=== PATIENT | male | born 1955 | race Caucasian/White ===

== ENCOUNTER 2016-12-19 13:21 | Outpatient (CLI) | payer OTHER | END 2016-12-19 13:22 | disposition home or self-care (01) | LOC: DTY/OP 13:21 | PROVIDERS: ATTEND Family Medicine | DX: E11.9 Type 2 diabetes mellitus without complications (principal) | CPT/HCPCS: 97802 ==

== ENCOUNTER 2019-03-22 09:08 | Day surgery (SDC) | payer OTHER ==
[2019-03-19 15:35] VITALS: BMI 32.1
[2019-03-22] MEDS ORDERED: PROPOFOL 200 MG/20 ML VIAL ONE (09:59)
[2019-03-22] MEDS ORDERED: PHENYLEPHRINE-NS 100 MCG/ML 10 ML SYRINGE ONE (09:59)
[2019-03-22] MEDS ORDERED: Lidocaine 1% PF 5 ML VIAL ONE (09:59)
--- NOTE | 2019-03-22 12:54 | OP ---
DATE OF PROCEDURE: 03/22/2019 PROCEDURE: Colonoscopy with polypectomy. PREPROCEDURE DIAGNOSIS: Personal history of colon cancer. POSTPROCEDURE DIAGNOSIS: Diminutive rectal polyp removed by cold snare polypectomy. ANESTHESIA: TIVA. RECOMMENDATIONS: Await histopathology. If this is a benign adenoma, would repeat colonoscopy in 3 years. In light of cancer history, if it is not even an adenoma, do at 5. PROCEDURE IN DETAIL: The patient was informed of the risks, benefits, and possible complications of endoscopy including perforation, reaction to medication, reaction to medication, and aspiration. Informed consent was obtained. The patient was brought to the endoscopy suite, where he was sedated in a gradual fashion. Once he was comfortable, rectal examination was performed. The endoscope was advanced from the anal canal through the colon to the cecum, which was identified by ileocecal valve and appendiceal orifice. There was anastomosis to the sigmoid colon, which was normal with no erosions, ulcers, or evidence of tumor mass. The prep was very good. The appendix and ileocecal valve area were photographed. The endoscope was then slowly removed with good visualization of mucosa. Retroflexed views in the rectum were normal. There was one small diminutive 2 mm polyp in the rectum which was removed by cold snare polypectomy and submitted to Pathology. The scope was then removed. The patient tolerated the procedure well. There were no complications. Job ID: [id number]
--- NOTE | 2019-03-23 11:09 | EKG ---
Test Reason : POST OP Blood Pressure : / mmHG Vent. 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 Rosy MULLIGAN ([id number]) on 03/23/2019 11:09:09 AM Referred By: [email or web address] Confirmed By:DR. Rosy MULLIGAN
== END 2019-03-22 12:30 | disposition home or self-care (01) ==
LOC: SDC 09:08
PROVIDERS: ATTEND Internal Medicine Gastroenterology
PROC: 0DBP8ZZ Excision of Rectum, Via Natural or Artificial Opening Endoscopic (ICD-10-PCS; principal; 2019-03-22)
DX: Z12.11 Encounter for screening for malignant neoplasm of colon (principal); K62.1 Rectal polyp; E11.9 Type 2 diabetes mellitus without complications; E78.00 Pure hypercholesterolemia, unspecified; I25.10 Atherosclerotic heart disease of native coronary artery without angina pectoris; Z85.038 Personal history of other malignant neoplasm of large intestine; Z79.82 Long term (current) use of aspirin; Z79.84 Long term (current) use of oral hypoglycemic drugs; Z79.899 Other long term (current) drug therapy; Z95.5 Presence of coronary angioplasty implant and graft
CPT/HCPCS: 88305; 93005; 93010; J2001; J2704

== ENCOUNTER 2019-03-28 01:46 | Emergency (ER) | payer OTHER ==
[2019-03-28] MEDS ORDERED: Aspirin Chewable 81 MG TAB ONE (02:09)
[2019-03-28 02:11] LABS: #Basophils 0.1 thou/uL (0.0-0.2); #Eosinphils 0.1 thou/uL (0.0-0.7); #Lymphocytes 2.3 thou/uL (1.20-3.40); #Monocytes 0.5 thou/uL (0.11-0.59); #Neutrophils 3.1 thou/uL (1.40-6.50); %Basophils 1.4 % (0.0-1.0); %Eosinophils 2.1 % (0.0-10.0); %Monocytes 7.9 % (0.0-10.0); %Neutrophils 50.6 % (42.0-75.0); Hemoglobin 14.7 g/dL (14.0-18.0); Mean Corpuscular HGB CONC 34.8 g/dL (32.0-36.0); Mean Platelet Volume 7.5 fL (7.4-10.4); Platelet Count 139 thou/uL (130-400); RBC Distribution Width 11.8 % (11.5-14.5); Red Blood Cell (RBC) Count 4.75 mill/uL (4.70-6.10)
[2019-03-28 02:32] LABS: ALT (SGPT) 28 U/L (8-55); AST (SGOT) 20 U/L (5-34); Albumin 4.2 g/dL (3.4-4.8); Alkaline Phosphatase 114 U/L (40-110); Anion Gap 16 mmol/L (10-20); BUN (Urea Nitrogen) 11 mg/dL (8.4-25.7); Bilirubin, Total 3.3 mg/dL (0.2-1.2); Calc. Creatinine Clearance 0 mL/min (70-130); Calcium 9.4 mg/dL (7.8-10.44); Carbon Dioxide 23 mmol/L (23-31); Chloride 100 mmol/L (98-107); Estimated GFR-MDRD 69; Globulin 2.7 g/dL (2.4-3.5); Glucose 350 mg/dL (80-115); Protein, Total 6.9 g/dL (5.8-8.1); Sodium 135 mmol/L (136-145)
--- NOTE | 2019-03-28 08:26 | RAD ---
XR Chest 1 View Portable History: Chest pain Comparison: Radiograph 2013 Findings: Port catheter is similar. Single-lead AICD projects over the right ventricle. Heart size mildly enlarged. No confluent airspace consolidation. Pulmonary arteries are mildly enlar ged. Impression: No acute intrathoracic abnormality.
== END 2019-03-28 09:10 ==
LOC: ERS 01:46
DX: R07.9 Chest pain, unspecified (principal); I25.2 Old myocardial infarction; Z87.891 Personal history of nicotine dependence; Z79.899 Other long term (current) drug therapy; Z79.82 Long term (current) use of aspirin; Z95.5 Presence of coronary angioplasty implant and graft
CPT/HCPCS: 36415; 71045; 80053; 84484; 85025; 93005

== ENCOUNTER 2023-05-29 06:32 | Day surgery (SDC) | payer OTHER ==
[2023-04-29 12:46] VITALS: BMI 30.2
[2023-05-29] MEDS ORDERED: PROPOFOL 20 ML ONE (08:27)
[2023-05-29] MEDS ORDERED: Lidocaine 1% PF 5 ML VIAL ONE (08:28)
[2023-05-29] MEDS ORDERED: Etomidate 40 MG (20 mL) VIAL ONE (08:46)
[2023-05-29] MEDS ORDERED: Sodium Chloride 0.9% 100 ML ONE (08:54)
[2023-05-29] MEDS ORDERED: Phenylephrine 10 MG/ML VIAL ONE (08:54)
[2023-05-30 13:16] LABS: EliA Celiac New Method **** NEW METHOD ****; t-Transglutaminase (tTG) IgA Less than 0.2 EliAU/mL (<7 Negative)
== END 2023-05-29 09:57 | disposition home or self-care (01) ==
LOC: SDC 06:32
PROVIDERS: ATTEND Internal Medicine Gastroenterology
PROC: 0DBE8ZX Excision of Large Intestine, Via Natural or Artificial Opening Endoscopic, Diagnostic (ICD-10-PCS; principal; 2023-05-29)
DX: R19.7 Diarrhea, unspecified (principal); I25.10 Atherosclerotic heart disease of native coronary artery without angina pectoris; E11.9 Type 2 diabetes mellitus without complications; E78.5 Hyperlipidemia, unspecified; I25.2 Old myocardial infarction; Z85.038 Personal history of other malignant neoplasm of large intestine; Z85.51 Personal history of malignant neoplasm of bladder; Z95.810 Presence of automatic (implantable) cardiac defibrillator; Z95.818 Presence of other cardiac implants and grafts; Z79.84 Long term (current) use of oral hypoglycemic drugs; Z79.899 Other long term (current) drug therapy; Z79.85 Long-term (current) use of injectable non-insulin antidiabetic drugs; Z88.8 Allergy status to other drugs, medicaments and biological substances
CPT/HCPCS: 36415; 83516; 88305; J2371; J2704

== ENCOUNTER 2024-12-09 07:50 | Outpatient (CLI) | payer OTHER | END 2024-12-09 07:51 | disposition home or self-care (01) | LOC: NM 07:50 | PROVIDERS: ATTEND Nurse Practitioner Family | DX: I25.10 Atherosclerotic heart disease of native coronary artery without angina pectoris (principal); R94.39 Abnormal result of other cardiovascular function study | CPT/HCPCS: 78452; 93017; A9502; J2785 ==